=== PATIENT | male | born 1995 | race Two or more races ===

== ENCOUNTER 2022-02-19 15:12 | Outpatient (REF) | payer OTHER, SELFPAY ==
[2022-02-19 15:35] LABS: MANUAL DIFF FLAG NO
[2022-02-19 16:15] LABS: Basophils Percent Auto 0.4 % (0-2); Eosinophils Absolute Auto 0.1 X10*3/uL (0.0-0.4); Eosinophils Percent Auto 1.5 % (0-4); Hemoglobin 14.7 g/dl (14.0-18.0); Imm Gran Abs Auto 0.02 X10*3/uL (0.00-0.03); Imm Gran Pct Auto 0.4 % (0.0-0.4); Lymphocytes Absolute Auto 1.6 X10*3/uL (1.2-4.9); Lymphocytes Percent Auto 33.7 % (20-40); Mean Corpuscular Hemoglobin 29.4 pg (27.0-33.0); Mean Platelet Volume 9.7 fL (9.4-12.4); Monocytes Absolute Auto 0.4 X10*3/uL (0.1-1.2); Monocytes Percent Auto 7.8 % (2-11); Neutrophils Absolute Auto 2.6 x10*3/uL (2.0-8.3); Neutrophils Percent Auto 56.2 % (45-73); Platelet Count 225 X10*3/uL (160-400); Red Cell Distribution Width 11.7 % (11.0-16.0); White Blood Count 4.6 X10*3/uL (4.8-10.8)
[2022-02-19 16:40] LABS: Anion Gap 12 (12-20); Blood Urea Nitrogen 10 mg/dL (9-16); Calcium 9.8 mg/dL (8.4-10.2); Carbon Dioxide 28 mmol/L (22-29); Chloride 104 mmol/L (96-108); Estimated Glomerular Filt Rate > 60; Glucose Random 100 mg/dL (60-115); Potassium 4.3 mmol/L (3.3-5.1); Sodium 140 mmol/L (135-145)
[2022-02-19 17:35] LABS: Erythrocyte Sedimentation Rate 2 MM/HR (0-15)
[2022-02-21 01:16] LABS: Lyme Abs Screen <0.90 index
== END 2022-02-19 15:13 | disposition home or self-care (01) ==
LOC: HO.LAB 15:12
PROVIDERS: Visit Provider Psychiatry & Neurology Neurology
DX: G51.0 Bell's palsy (principal)
CPT/HCPCS: 36415; 80048; 85025; 85652; 86617; 86618

== ENCOUNTER 2024-12-28 01:11 | Emergency (ER) | payer OTHER, SELFPAY ==
[2024-12-28 01:19] VITALS: BP 130/76; PULSE 102; RESP 16; TEMP 36.3; O2SAT 99; BMI 25.2
--- NOTE | 2024-12-28 01:50 | PC.NURSE ---
This patient found by the doors to the WR requesting to leave. Pt was assisted back to his bed, primary RN made aware. Pt advised he was next on the list to be seen. Providers notified that pt was requesting to leave.
--- NOTE | 2024-12-28 02:05 | PC.NURSE ---
Pt came up to this RN and stated he wanted to leave even though patient had only been in the department approx 45 mins. Pt states he feels better and he is ok to go home. Pt reassured that he is next to be seen on the provider list and offered for patient to wait a few minutes longer. Pt persistent that he wants to leave without being seen. SHADIA Ignacio involved in conversation and gave patient blessing to leave. ambulatory with a steady gait out of department, no apparent distress.
== END 2024-12-28 02:05 | disposition left against medical advice (07) ==
PROVIDERS: Emergency Provider Emergency Medicine; PCP Internal Medicine
DX: R20.0 Anesthesia of skin (principal)
CPT/HCPCS: 99281